=== PATIENT | male | born 1940 | race Caucasian/White ===

== ENCOUNTER → 2019-10-14 | Outpatient (CLI) | payer OTHER ==
[~2019-10-14] MED LIST: ADVAIR HFA 230M1 AER IH; ALTACE10 M1 OR; ATENOLOL 100MG100 M2 OR; COQ1050 MG PO; FLOMAX OR; HYDROCODON-ACE1 EA12 OR; LANOXIN 0.250.25 M1 OR; LIPITOR10 MG PO; MIRALAX17 GM PO; PRADAXA150 MG OR; PRILOSEC40 MG OR; SINGULAIR 10 MG10 M1 OR; SYNTHROID88 MCG OR; THERA-M CAPLET1 EACH OR; VALIUM5 MG OR; XARELTO10 MG PO
== END ==
LOC: RAD 13:46
DX: J44.9 Chronic obstructive pulmonary disease, unspecified (principal)